=== PATIENT | male | born 1990 | race African-American/Black ===

== ENCOUNTER 2023-06-20 20:30 | Emergency (ER) | payer OTHER ==
[~2023-06-20] VITALS: Ht 175.3 cm; Wt 86.2 kg
[2023-06-20 20:59] VITALS: BP_SYST 127; PULSE 107; RESP 18; TEMP 98.3; O2SAT 97
[2023-06-20 21:46] LABS: BASOPHILS % (AUTO) 0.5 % (0.0-2.0); EOSINOPHILS # (AUTO) 0.1 K/uL (0.0-0.4); EOSINOPHILS % (AUTO) 0.6 % (0.0-4.0); HEMATOCRIT 44.5 % (36-54); HEMOGLOBIN 15.2 g/dL (14.0-18.0); LYMPHOCYTES # (AUTO) 1.6 K/uL (1.0-5.5); LYMPHOCYTES % (AUTO) 15.2 % (20.5-51.5); MEAN CORPUSCULAR HEMOGLOBIN 31 pg (27-31); MEAN CORPUSCULAR HGB CONC 34 % (32-36); MEAN CORPUSCULAR VOLUME 91 fL (79.0-98.0); MONOCYTES # (AUTO) 0.9 K/uL (0.0-1.0); MONOCYTES % (AUTO) 8.6 % (1.7-9.3); NEUTROPHILS # (AUTO) 7.9 K/uL (1.8-7.7); NEUTROPHILS % (AUTO) 75.1 % (40.0-70.0); PLATELET COUNT (AUTO) 338 K/uL (130-430); RED BLOOD CELL COUNT(AUTO) 4.87 MIL/uL (4.2-6.2); RED CELL DISTRIBUTION WIDTH 13.4 % (9.0-15.0); WHITE BLOOD COUNT (AUTO) 10.4 K/uL (4.8-10.8)
[2023-06-20 22:14] LABS: CREATININE 0.87 mg/dL (0.55-1.30); POTASSIUM 3.7 mmol/L (3.5-5.1)
[2023-06-20 22:19] LABS: ALBUMIN 3.6 g/dL (3.4-4.8); TOTAL BILIRUBIN 0.3 mg/dL (0.0-1.0); TOTAL PROTEIN, SERUM 7.8 g/dL (6.4-8.3)
[2023-06-21 02:10] VITALS: TEMP 98.4
[2023-06-21] MEDS ORDERED: cefTRIAXone 1 GM VIAL IM ONE (02:30)
[2023-06-21] MEDS ORDERED: LIDOCAINE 1% 10 MG/ML, 20 ML MDV INJ ONE (02:30)
[2023-06-21] MEDS ORDERED: DIPHTH,PERTUSS(ACELL),TET VAC 0.5 ML VIAL (Tdap) I.M. ONE (02:30)
[2023-06-21] MEDS ORDERED: CEPH-548 PO (05:09)
[2023-06-21] MEDS ORDERED: SULF1TAB48 PO (05:10)
[2023-06-21 05:16] VITALS: BP_SYST 133; PULSE 95; RESP 18; O2SAT 96
== END 2023-06-21 05:16 | disposition home or self-care (01) ==
LOC: SED 20:30
DX: L03.116 Cellulitis of left lower limb (principal); R21 Rash and other nonspecific skin eruption; F17.200 Nicotine dependence, unspecified, uncomplicated; F15.90 Other stimulant use, unspecified, uncomplicated; F14.90 Cocaine use, unspecified, uncomplicated; Z79.899 Other long term (current) drug therapy
CPT/HCPCS: 99285; 80053; 85025; 87040; 36415; 83605; 93971; 90715; 96372; 90471; J0696; J2001